=== PATIENT | male | born 1995 ===

== ENCOUNTER 2021-08-12 11:47 | Inpatient (IN) | payer BC ==
[2021-08-12] MEDS ORDERED: MAG HYDROX/AL HYDROX/SIMETH 30 ML CUP PO PRN (18:37)
[2021-08-12] MEDS ORDERED: MAGNESIUM HYDROXIDE 2,400 MG/10 ML CUP PO PRN (18:37)
[2021-08-12] MEDS ORDERED: LORazepam 1 MG TAB PO PRN (18:37)
[2021-08-12] MEDS ORDERED: LORazepam 2 MG/ML INJ IM PRN (18:41)
[2021-08-12] MEDS ORDERED: chlorproMAZINE 25 MG/ML 2 ML AMP IM PRN (18:41)
[2021-08-13] MEDS: NICOTINE 14MG/24HR PATCH TRANSDERM SCH (07:34)
[2021-08-13 09:46] LABS: Appearance,Urine Clear (Clear); Bilirubin,Urine Negative (Negative); Blood,Urine Negative (Negative); Color,Urine Yellow; Glucose,Urine (UA) Negative (Negative); Ketones,Urine Negative (Negative); Leukocyte Esterase,Urine Negative (Negative); Nitrite,Urine Negative (Negative); Protein,Urine Negative (Negative); Specific Gravity,Urine 1.018 (1.001-1.035); Urobilinogen,Urine <2.0 mg/dL (<2.0)
[2021-08-13] MEDS ORDERED: PALIPERIDONE 3 MG TAB.ER.24 PO STA (10:03)
[2021-08-13] MEDS ORDERED: DIVALPROEX 500 MG TABLET.DR PO STA (10:04)
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
[2021-08-13] MEDS: chlorproMAZINE 25 MG TAB PO PRN ×2 (17:13→21:58)
[2021-08-13] MEDS: DIVALPROEX 500 MG TABLET.DR PO SCH (19:35)
[2021-08-13 19:44] LABS: Urine Alcohol Negative (Negative); Urine Barbiturate Negative (Negative); Urine Cocaine Negative (Negative); Urine Methadone Negative (Negative); Urine Opiates Negative (Negative); Urine Phencyclidine Negative (Negative)
--- NOTE | 2021-08-14 02:17 | P.PN ---
Progress Note - Text Progress Note Date: 08/13/21 patient psychotic and could not be evaluated at this time
[2021-08-14] MEDS: ACETAMINOPHEN TAB 325 MG TAB PO PRN (05:03)
[2021-08-14] MEDS ORDERED: chlorproMAZINE 25 MG TAB PO PRN (09:32)
[2021-08-14] MEDS ORDERED: chlorproMAZINE 25 MG/ML 2 ML AMP IM PRN (09:32)
[2021-08-14] MEDS ORDERED: LORazepam 2 MG/ML INJ IM PRN (09:32)
[2021-08-14] MEDS: NICOTINE 14MG/24HR PATCH TRANSDERM SCH ×2 (10:38→14:33)
[2021-08-14] MEDS: PALIPERIDONE 6 MG TAB.ER.24 PO SCH ×2 (10:39→14:33)
[2021-08-14] MEDS: DIVALPROEX 500 MG TABLET.DR PO SCH (10:42)
--- NOTE | 2021-08-14 11:41 | P.PN ---
Progress Note - Text Progress Note Date: 08/14/21 Interval History: Patient was seen resting in bed after receiving Ativan and Thorazine for an episode of agitation. As per chart review, the patient came up to the desk at approximately 5 AM and was asking to get his cell phone. He became very agitated and began threatening staff when he was informed that the phones would be off until 7 AM and cell phones were not allowed on the unit. He started threatening staff and stated that he could repeat this place apart. He took off his glasses off his face and broke them in half and threw them on the floor. He also punched a glass on the window with his right hand very loudly. Security was called and he was given Thorazine and Ativan. Currently the patient is sleeping in bed. At this time, it appears to be more therapeutic for manic patient to sleep. He appears to be in no acute distress and vital signs are normal. Mental Status Exam: General Appearance: Patient appears to be stated age is somnolent, and no acute distress. Behavior: Lying down in bed and is currently sleeping. Speech: Patient's speech could not be assessed at this time. Mood/Affect: Cannot be assessed at this time. Suicidality/Homicidality: Cannot be assessed at this time. Perceptions: Cannot be assessed at this time. Though content/process: Cannot be assessed at this time. Memory and concentration: Cannot be assessed at this time. Judgment and insight: Cannot be assessed at this time. Vital Signs Temp 95.8 F L 08/14/21 05:08 Pulse 86 08/14/21 05:08 Resp 18 08/14/21 05:08 BP 133/79 08/14/21 05:08 Pulse Ox 97 08/13/21 03:52 FiO2 Intake & Output 08/13/21 08/14/21 08/14/21 18:59 06:59 18:59 Weight 131.542 kg Laboratory Results - Last 24 Hours 08/13/21 09:30 Urine Opiates Screen Negative Urine Methadone Screen Negative Ur Propoxyphene Screen Negative Urine Barbiturates Negative Ur Phencyclidine Scrn Negative Ur Amphetamine Screen Negative U Benzodiazepines Scrn Negative Urine Cocaine Screen Negative U Cannabinoids Screen Positive A Urine Alcohol Negative Assessment Acute psychosis Rule out bipolar 1 disorder, manic episode, with psychotic features Rule out schizoaffective disorder, bipolar type Cannabis use disorder Plan: -Patient continues to meet criteria for inpatient psychiatric admission for symptom stabilization and safety. The patient has been petitioned and certified and paperwork has been sent for court. -Medications: Increase Invega to 6 mg by mouth daily for mood stabilization/psychosis Increase Depakote to 750 mg by mouth twice a day stabilization -When necessary Ativan and Thorazine for agitation/aggression. -NRT - nicotine patch -SW on board for discharge planning. Encouraged the patient to participate in milieu.
[2021-08-14] MEDS: chlorproMAZINE 25 MG TAB PO PRN (14:34)
[2021-08-14] MEDS: DIVALPROEX ER 250 MG TAB.ER.24H PO SCH (20:06)
[2021-08-14] MEDS: LORazepam 1 MG TAB PO PRN (20:07)
[2021-08-14] MEDS ORDERED: diphenhydrAMINE 50 MG/ML 1 ML VIAL IM STA (21:36)
[2021-08-14] MEDS: chlorproMAZINE 25 MG/ML 2 ML AMP IM PRN (21:37)
[2021-08-15] MEDS: LORazepam 1 MG TAB PO PRN ×3 (02:10→22:14)
[2021-08-15] MEDS: chlorproMAZINE 25 MG TAB PO PRN ×2 (02:10→10:11)
[2021-08-15] MEDS: DIVALPROEX ER 250 MG TAB.ER.24H PO SCH ×2 (08:56→20:18)
[2021-08-15] MEDS: NICOTINE 14MG/24HR PATCH TRANSDERM SCH (08:56)
[2021-08-15] MEDS: PALIPERIDONE 6 MG TAB.ER.24 PO SCH (08:56)
[2021-08-15 16:17] LABS: Basophils # (A) 0.1 k/uL (0-0.2); Basophils % (A) 1 %; Eosinophils # (A) 0.2 k/uL (0-0.7); Eosinophils % (A) 1 %; HCT 45.1 % (39.0-53.0); HGB 15.1 gm/dL (13.0-17.5); Lymphocytes # (A) 1.8 k/uL (1.0-4.8); Lymphocytes % (A) 13 %; MCH 30.2 pg (25.0-35.0); MCHC 33.5 g/dL (31.0-37.0); MCV 90.1 fL (80.0-100.0); Mean Platelet Volume 6.7; Monocytes # (A) 0.6 k/uL (0-1.0); Monocytes % (A) 5 %; Neutrophils # (A) 10.9 k/uL (1.3-7.7); Neutrophils % (A) 79 %; Platelet Count 401 k/uL (150-450); RDW 12.5 % (11.5-15.5); WBC 13.8 k/uL (3.8-10.6)
[2021-08-15 16:25] LABS: African American GFR (CKD) >90 (>60 ml/min/1.73 sqM); Anion Gap 10 mmol/L; Blood Urea Nitrogen 16 mg/dL (9-20); Calcium 9.3 mg/dL (8.4-10.2); Carbon Dioxide 30 mmol/L (22-30); Chloride 99 mmol/L (98-107); Glucose 109 mg/dL (74-99); Non-African American GFR(CKD) >90 (>60 ml/min/1.73 sqM); Potassium 4.4 mmol/L (3.5-5.1); Sodium 139 mmol/L (137-145)
[2021-08-15] MEDS ORDERED: ONDANSETRON 4 MG TAB PO PRN (16:41)
--- NOTE | 2021-08-15 18:32 | P.PN ---
Progress Note - Text Progress Note Date: 08/15/21 Interval History: Patient was seen wandering the hallways and was agreeable to meeting with this psychiatrist with nurse present. On assessment this afternoon at around 3pm, he presents as grossly psychotic, appears easily confused and concrete in his thought process with some loose associations. He appears to be attending to internal stimuli. He is fixated on not having his cellphone and wants to call his family, but appears confused about using the patient phone and wants us to dial the number for him. As we are helping dial the phone numbers, he complains of feeling lightheaded, appears mildly diaphoretic and complains of nausea. He was assisted to sit down and was given fluids/crackers, and reportedly vomited x 1. His vitals were stable except for heart rate of 102-108, and he is afebrile. Last night he required Thorazine 50 mg IM x 1 for agitation, and this morning required another Thorazine 50 mg po x 1 plus Ativan 2 mg po x 1 for agitation/anxiety. Mental Status Exam: General Appearance: Patient appears to be stated age, is mildly diaphoretic and complains of feeling lightheaded and nauseous. Orientation: He is alert, and oriented to person, place. Could not fully assess time due to symptoms. Behavior: Walking around the unit, is currently calm but appears easily confused. Speech: Speech is mumbled and difficulty to understand at times. Mood/Affect: Mood is "ok", affect is blunted. Suicidality/Homicidality: He denies suicidal or homicidal ideations. Perceptions: He appears to be attending to internal stimuli, however he denies AVH. Though content: Focused on using the phone but is confused on how to dial the number Thought process: [place] Memory and concentration: Impaired Judgment and insight: Poor Vital Signs - 24 hr 08/15/21 08/15/21 02:00 15:36 Temperature 97.6 F 97.1 F L Pulse Rate [ 108 H 102 H Pulse Oximetery ] Respiratory 18 16 Rate Blood Pressure 127/77 [Left Arm] Blood Pressure 129/77 [Right Arm Sitting] Laboratory Tests Range/Units 08/13/21 08/13/21 08/15/21 09:30 09:30 15:55 WBC (3.8-10.6) k/uL 13.8 H RBC (4.30-5.90) m/uL 5.00 Hgb (13.0-17.5) gm/dL 15.1 Hct (39.0-53.0) % 45.1 MCV (80.0-100.0) fL 90.1 MCH (25.0-35.0) pg 30.2 MCHC (31.0-37.0) g/dL 33.5 RDW (11.5-15.5) % 12.5 Plt Count (150-450) k/uL 401 MPV 6.7 Neutrophils % % 79 Lymphocytes % % 13 Monocytes % % 5 Eosinophils % % 1 Basophils % % 1 Neutrophils # (1.3-7.7) k/uL 10.9 H Lymphocytes # (1.0-4.8) k/uL 1.8 Monocytes # (0-1.0) k/uL 0.6 Eosinophils # (0-0.7) k/uL 0.2 Basophils # (0-0.2) k/uL 0.1 Sodium (137-145) mmol/L Potassium (3.5-5.1) mmol/L Chloride (98-107) mmol/L Carbon Dioxide (22-30) mmol/L Anion Gap mmol/L BUN (9-20) mg/dL Creatinine (0.66-1.25) mg/dL Est GFR (CKD-EPI)AfAm (>60 ml/min/1.73 sqM) Est GFR (CKD-EPI)NonAf (>60 ml/min/1.73 sqM) Glucose (74-99) mg/dL Calcium (8.4-10.2) mg/dL Ammonia (<30) umol/L TSH (0.465-4.680) mIU/L Urine Color Yellow Urine Appearance (Clear) Clear Urine pH (5.0-8.0) 6.0 Ur Specific [place] (1.001-1.035) 1.018 Urine Protein (Negative) Negative Urine Glucose (UA) (Negative) Negative Urine Ketones (Negative) Negative Urine Blood (Negative) Negative Urine Nitrite (Negative) Negative Urine Bilirubin (Negative) Negative Urine Urobilinogen (<2.0) mg/dL <2.0 Ur Leukocyte Esterase (Negative) Negative Urine Opiates Screen (Negative) Negative Urine Methadone Screen (Negative) Negative Ur Propoxyphene Screen (Negative) Negative Urine Barbiturates (Negative) Negative Ur Phencyclidine Scrn (Negative) Negative Ur Amphetamine Screen (Negative) Negative U Benzodiazepines Scrn (Negative) Negative Urine Cocaine Screen (Negative) Negative U Cannabinoids Screen (Negative) Positive A Urine Alcohol (Negative) Negative Range/Units 08/15/21 08/15/21 15:55 15:55 WBC (3.8-10.6) k/uL RBC (4.30-5.90) m/uL Hgb (13.0-17.5) gm/dL Hct (39.0-53.0) % MCV (80.0-100.0) fL MCH (25.0-35.0) pg MCHC (31.0-37.0) g/dL RDW (11.5-15.5) % Plt Count (150-450) k/uL MPV Neutrophils % % Lymphocytes % % Monocytes % % Eosinophils % % Basophils % % Neutrophils # (1.3-7.7) k/uL Lymphocytes # (1.0-4.8) k/uL Monocytes # (0-1.0) k/uL Eosinophils # (0-0.7) k/uL Basophils # (0-0.2) k/uL Sodium (137-145) mmol/L 139 Potassium (3.5-5.1) mmol/L 4.4 Chloride (98-107) mmol/L 99 Carbon Dioxide (22-30) mmol/L 30 Anion Gap mmol/L 10 BUN (9-20) mg/dL 16 Creatinine (0.66-1.25) mg/dL 1.02 Est GFR (CKD-EPI)AfAm (>60 ml/min/1.73 sqM) >90 Est GFR (CKD-EPI)NonAf (>60 ml/min/1.73 sqM) >90 Glucose (74-99) mg/dL 109 H Calcium (8.4-10.2) mg/dL 9.3 Ammonia (<30) umol/L <9 TSH (0.465-4.680) mIU/L 1.040 Urine Color Urine Appearance (Clear) Urine pH (5.0-8.0) Ur Specific [place] (1.001-1.035) Urine Protein (Negative) Urine Glucose (UA) (Negative) Urine Ketones (Negative) Urine Blood (Negative) Urine Nitrite (Negative) Urine Bilirubin (Negative) Urine Urobilinogen (<2.0) mg/dL Ur Leukocyte Esterase (Negative) Urine Opiates Screen (Negative) Urine Methadone Screen (Negative) Ur Propoxyphene Screen (Negative) Urine Barbiturates (Negative) Ur Phencyclidine Scrn (Negative) Ur Amphetamine Screen (Negative) U Benzodiazepines Scrn (Negative) Urine Cocaine Screen (Negative) U Cannabinoids Screen (Negative) Urine Alcohol (Negative) Assessment Bipolar 1 disorder, current episode manic with psychotic features Rule out schizoaffective disorder, bipolar type Cannabis use disorder Plan: -Patient continues to meet criteria for inpatient psychiatric admission for symp gurmeet stabilization and safety. The patient has been petitioned and certified and paperwork has been sent for court. -Medications: Continue Invega 6 mg by mouth daily for mood stabilization/psychosis. Continue Depakote to 750 mg by mouth twice a day stabilization. Medical doctor was contacted regarding patient's nausea/vomiting and Zofran was ordered. I have reviewed his UA and Urine toxicology. I have ordered labs additional labs today including CBC with diff, CMP, TSH and ammonia level. Ammonia, TSH and CMP are unremarkable. CBC shows elevated WBC and neutrophils. I discussed these labs with the nurse and we have also ordered a COVID test. Medical doctor to follow-up with patient tomorrow. -When necessary Thorazine for agitation/aggression. I have discontinue the PRN Ativan since he reported feeling lightheaded today. -NRT - nicotine patch -SW on board for discharge planning. Encouraged the patient to participate in milieu.
[2021-08-15] MEDS ORDERED: LORazepam 2 MG/ML INJ IM PRN (21:57)
[2021-08-15] MEDS: ACETAMINOPHEN TAB 325 MG TAB PO PRN (22:14)
[2021-08-15 23:17] LABS: Chol/HDL Ratio 2.88 Ratio; LDL Cholesterol,Calculated 69.4 mg/dL (0.0-131.0); VLDL Calculation 14.24 mg/dL (5.00-40.00)
--- NOTE | 2021-08-16 01:22 | P.PN ---
Progress Note - Text Progress Note Date: 08/16/21 Notified of the consult by the mental health unit RN. Attempted to see the patient, but was advised that the patient is sleeping and not be woken up as he is aggressive and psychotic. Will attempt to see the patient tomorrow.
[2021-08-16] MEDS: LORazepam 1 MG TAB PO PRN (04:17)
[2021-08-16] MEDS: chlorproMAZINE 25 MG TAB PO PRN ×2 (04:17→23:55)
[2021-08-16] MEDS: PALIPERIDONE 6 MG TAB.ER.24 PO SCH ×2 (08:58→20:30)
[2021-08-16] MEDS: DIVALPROEX ER 250 MG TAB.ER.24H PO SCH ×2 (08:58→20:30)
[2021-08-16] MEDS: NICOTINE 14MG/24HR PATCH TRANSDERM SCH (08:59)
--- NOTE | 2021-08-16 17:48 | P.PN ---
Progress Note - Text Progress Note Date: 08/16/21 Interval History: Patient was seen wandering the hallways, remains intrusive and knocks on the office door multiple times. His thoughts are becoming more coherent, but still makes nonsensical and disorganized statements. He denies auditory or visual hallucinations. He denies suicidal or homicidal ideation, plan or intent. He denies feeling lightheaded today, denies nausea or vomiting. Medical doctor attempted to see him but he was asleep. He reports his mood is "down", no energy, "honestly I'd rather smoke weed." He appears anxious, has not been able to reach his daughter, has not been able to communicate with this family. He has nonworking numbers for his family so we looked up the correct numbers online with his permission. We called the first number and reached his grandmother who was happy to hear from him and gave him the numbers for his mother and father. 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 He does not think he has a mental illness and does not think he needs to take medications. He states he didn't take medications before in his life and he was "fine". His insight and judgment remain poor. He begins to cry and state he feels "depressed" and all he cares about is his daughter. Mental Status Exam: General Appearance: Patient appears to be stated age, hygiene is fair. Orientation: He is alert, and oriented to person, place, time. Behavior: Walking around the unit, is intrusive and impulsive. Speech: Speech is fluent and non-pressured. Mood/Affect: Mood is "down", affect is congruent, tearful at times. Suicidality/Homicidality: He denies suicidal or homicidal ideations. Perceptions: He appears to be attending to internal stimuli, however he denies AVH. Though content: Focused on his daughter. Thought process: Thought blocking, loose associations, disorganized. Memory and concentration: Impaired Judgment and insight: Poor Assessment Bipolar 1 disorder, current episode manic with psychotic features Rule out schizoaffective disorder, bipolar type Cannabis use disorder Plan: -Patient continues to meet criteria for inpatient psychiatric admission for symptom stabilization and safety. The patient has been petitioned and certified and paperwork has been sent for court. -Medications: Increase Invega to 6 mg BID for mood stabilization/psychosis. Continue Depakote to 750 mg by mouth twice a day stabilization. Depakote level ordered for Wednesday morning. -When necessary Thorazine for agitation/aggression. -NRT - nicotine patch -SW on board for discharge planning. Encouraged the patient to participate in milieu.
--- NOTE | 2021-08-17 03:07 | P.CONS ---
History of Present Illness - Reason for Consult Consult date: 08/16/21 - History of Present Illness The patient is a 25-year-old male with no known PMH who was transferred from [facility] where he had been admitted for manic episode. The patient reports that he was recently started on Zoloft which he believes made him developed OCD. He appeared to have grandiose delusions and mentioned that he is the "all knowing". He reports using marijuana and vaping but denied illicit substance or alcohol use. Denied physical complaints at the time of interview. Denied experiencing chest discomfort, shortness of cough, chills, cough, nausea, vomiting, abdominal pain, diarrhea. Review of systems: Pertinent positives and negatives as discussed in HPI, a complete review of systems was performed and all other systems are negative. Physical examination: General: non toxic, no distress, appears at stated age, normal weight Derm: no unusual rashes/lesions no unusual ecchymoses, warm, dry Head: atraumatic, normocephalic, symmetric Eyes: EOMI, no lid lag, anicteric sclera, pupils equal round reactive to light ENT: Nose and ears atraumatic, no thrush, no pharyngeal erythema Neck: No thyromegaly, no cervical lymphadenopathy, trachea midline, supple Mouth: no lip lesion, mucus membranes moist Cardiovascular: S1S2 reg, no murmur, positive posterior tibial pulse bilateral, no edema, capillary refill less than 2 seconds Lungs: CTA bilateral, no rhonchi, no rales , no accessory muscle use Abdominal: soft, nontender to palpation, no guarding, no appreciable organomegaly, normal bowel sounds Ext: no gross muscle atrophy, muscle strength 5 out of 5 in all 4 extremities grossly, no contractures, Neuro: CN II-XI grossly intact, light touch intact all 4 extremities, finger to nose within normal limits, Psych: Alert, oriented, paranoid Assessment/plan Marijuana and vaaping abuse -Advised on the importance of cessation Psychosis -As per psychiatry Thank you for allowing us to participate in the care of this patient. We will follow peripherally. Do not hesitate to contact us with questions. Someone can be reached from the [facility] hospitalist group at all hours of the day at [phone]. Past Medical History Past Medical History: GERD/Reflux Additional Past Medical History / Comment(s): fracture to nose History of Any Multi-Drug Resistant Organisms: None Reported Past Surgical History: No Surgical Hx Reported Past Anesthesia/Blood Transfusion Reactions: No Reported Reaction Past Psychological History: Bipolar, Depression Smoking Status: Vaper Past Alcohol Use History: Occasional Additional Past Alcohol Use History / Comment(s): 1-2 drinks/week Past Drug Use History: Marijuana Additional Drug Use History / Comment(s): 1 oz. marijuana daily-none in last few weeks, past mushroom use. - Past Family History Mother History Unknown: Yes Family Medical History: Liver Disease Medications and Allergies Home Medications Medication Instructions Recorded Confirmed Type No Known Home Medications 08/12/21 08/12/21 History Allergies Allergy/AdvReac Type Severity Reaction Status Date / Time No Known Allergies Allergy Verified 08/12/21 23:59 Physical Exam Vitals: Vital Signs Pulse BP 08/16/21 19:01 107 H 130/71 Results CBC & Chem 7: 08/15/21 15:55 08/15/21 15:55
[2021-08-17] MEDS: PALIPERIDONE 6 MG TAB.ER.24 PO SCH ×3 (08:36→21:02)
[2021-08-17] MEDS: DIVALPROEX ER 250 MG TAB.ER.24H PO SCH ×3 (08:36→21:02)
[2021-08-17] MEDS: NICOTINE 14MG/24HR PATCH TRANSDERM SCH (08:36)
[2021-08-17] MEDS: chlorproMAZINE 25 MG/ML 2 ML AMP IM PRN (09:28)
[2021-08-17] MEDS: ACETAMINOPHEN TAB 325 MG TAB PO PRN (09:41)
[2021-08-17] MEDS ORDERED: HALOPERIDOL LACTATE 5 MG/ML 1 ML VIAL IM PRN (15:07)
--- NOTE | 2021-08-17 15:10 | P.PN ---
Progress Note - Text Progress Note Date: 08/17/21 Interval History: Patient was seen wandering the hallways, remains intrusive with odd affect. This morning he received his morning medications, and about an hour later he received Thorazine 50 mg IM x 1 and Ativan 1 mg IM x 1 for agitation. By noon he was complaining of nausea, and around 2:45 pm he came into the psychiatrist's office, reported not feeling well and that he had just vomited, reported vomiting 3-4 times so today (some of it witnessed). He had a similar episode of emesis 2 days ago after getting Thorazine and Ativan PRN, so I will discontinue these today. He is otherwise a poor historian. He denies suicidal or homicidal ideation, plan or intent. 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 He appears to be attending to internal stimuli. Thought process is significant for loose associations. He talks about missing his family. He mumbles incoherently, and lays down on the couch in the psychiatrist's office and falls asleep. Mental Status Exam: General Appearance: Patient appears to be stated age, hygiene is fair, appears nausea, just vomited. Orientation: He is alert, and oriented to person, place. Not able to assess time due to his nausea/vomiting. Behavior: Walking around the unit, remains intrusive and impulsive. Speech: Speech is mumbled and non-pressured. Mood/Affect: Mood is depressed, affect is congruent. Suicidality/Homicidality: He denies suicidal or homicidal ideations. Perceptions: He appears to be attending to internal stimuli, however he denies AVH. Though content: Focused on his family. Mumbles other incoherent things. Thought process: Loose associations. Memory and concentration: Impaired Judgment and insight: Poor Assessment Bipolar 1 disorder, current episode manic with psychotic features Rule out schizoaffective disorder, bipolar type Cannabis use disorder Nausea/vomiting Plan: -Patient continues to meet criteria for inpatient psychiatric admission for symptom stabilization and safety. The patient has been petitioned and certified and paperwork has been sent for court. Labs: Ordered STAT CBC with diff, CMP, lipase, amylase, ammonia, to assess nausea/vomiting. -Medications: Continue Invega 6 mg BID for mood stabilization/psychosis. Discontinue Thorazine and Ativan PRN for agitation due to nausea/vomiting on 2 days following these medications. Will start Haldol 5 mg PO/IM Q6H PRN for agitation. Continue Depakote 750 mg by mouth twice a day for mood stabilization. Depakote level ordered for Wednesday morning. Will adjust doses based on level. -NRT - nicotine patch -SW on board for discharge planning. Encouraged the patient to participate in milieu.
[2021-08-17 15:25] LABS: Basophils % (A) 0 %; Eosinophils # (A) 0.1 k/uL (0-0.7); Eosinophils % (A) 1 %; HCT 40.6 % (39.0-53.0); HGB 13.6 gm/dL (13.0-17.5); Lymphocytes # (A) 1.4 k/uL (1.0-4.8); Lymphocytes % (A) 14 %; MCH 30.7 pg (25.0-35.0); MCHC 33.5 g/dL (31.0-37.0); MCV 91.8 fL (80.0-100.0); Mean Platelet Volume 6.8; Monocytes # (A) 0.5 k/uL (0-1.0); Monocytes % (A) 5 %; Neutrophils # (A) 7.6 k/uL (1.3-7.7); Neutrophils % (A) 78 %; Platelet Count 348 k/uL (150-450); RBC 4.43 m/uL (4.30-5.90); RDW 12.9 % (11.5-15.5); WBC 9.7 k/uL (3.8-10.6)
[2021-08-17 15:45] LABS: ALT 23 U/L (4-49); AST 43 U/L (17-59); African American GFR (CKD) >90 (>60 ml/min/1.73 sqM); Albumin 4.3 g/dL (3.5-5.0); Alkaline Phosphatase 71 U/L (38-126); Amylase 56 U/L (30-110); Anion Gap 6 mmol/L; Blood Urea Nitrogen 15 mg/dL (9-20); Carbon Dioxide 31 mmol/L (22-30); Chloride 101 mmol/L (98-107); Glucose 112 mg/dL (74-99); Lipase 41 U/L (23-300); Non-African American GFR(CKD) >90 (>60 ml/min/1.73 sqM); Potassium 4.3 mmol/L (3.5-5.1); Sodium 138 mmol/L (137-145); Total Bilirubin 0.6 mg/dL (0.2-1.3); Total Protein 6.9 g/dL (6.3-8.2)
[2021-08-17] MEDS: haloperidoL 5 MG TAB PO PRN (21:09)
[2021-08-18] MEDS: NICOTINE 14MG/24HR PATCH TRANSDERM SCH (10:00)
[2021-08-18] MEDS: PALIPERIDONE 6 MG TAB.ER.24 PO SCH ×2 (10:00→21:14)
[2021-08-18] MEDS: DIVALPROEX ER 250 MG TAB.ER.24H PO SCH ×2 (10:00→21:14)
[2021-08-18] MEDS: haloperidoL 5 MG TAB PO PRN (11:02)
--- NOTE | 2021-08-18 16:16 | P.PN ---
Progress Note - Text Progress Note Date: 08/18/21 Interval History: I attempted to assess patient twice today and both times he was found asleep in bed. He has received Haldol 5 mg po x 1 at 11:02 AM today for agitation. On my second attempt, he awakens easily to name, but is passively engaged in assessment. He denies suicidal or homicidal ideation, plan or intent and then falls asleep. He continues to be intrusive on the unit, requires redirection, and talk about being transferred so he can volunteer. No more nausea/vomiting reported. Labs reviewed and amylase/lipase are unremarkable. Mental Status Exam: General Appearance: Patient appears to be stated age, hygiene is fair, dressed in casual attire. Orientation: He is sleepy, oriented to person and place. Behavior: Laying in bed asleep, is passively engaged in assessment on awakening, and returns to sleep. Speech: Speech is mumbled and non-pressured. Mood/Affect: Mood is labile, affect is congruent. Suicidality/Homicidality: He denies suicidal or homicidal ideations, plan or intent. Perceptions: Unable to fully assess due to sedation. Though content: Earlier today he was talking about being transferred so he can volunteer. Thought process: Loose associations. Memory and concentration: Impaired Judgment and insight: Poor Assessment Bipolar 1 disorder, current episode manic with psychotic features Rule out schizoaffective disorder, bipolar type Cannabis use disorder Nausea/vomiting - resolved Plan: -Patient continues to meet criteria for inpatient psychiatric admission for symptom stabilization and safety. The patient has been petitioned and certified and paperwork has been sent for court. Labs: Repeat Depakote level ordered for Wednesday08/19/21. -Medications: Continue Invega 6 mg BID for mood stabilization/psychosis. Continue Depakote 750 mg BID for mood stabilization, and can adjust dose based on Depakote level. Continue Haldol 5 mg PO/IM Q6H PRN for agitation. -NRT - nicotine patch -SW on board for discharge planning. Encouraged the patient to participate in milieu.
[2021-08-19] MEDS: NICOTINE 14MG/24HR PATCH TRANSDERM SCH (09:58)
[2021-08-19] MEDS: DIVALPROEX ER 250 MG TAB.ER.24H PO SCH ×2 (09:58→19:56)
[2021-08-19] MEDS: PALIPERIDONE 6 MG TAB.ER.24 PO SCH ×2 (09:58→19:56)
--- NOTE | 2021-08-19 12:07 | P.PN ---
Progress Note - Text Progress Note Date: 08/19/21 Interval History: Patient was seen wandering the hallways and was directable and agreeable to speak with clinical writer in the office. The patient reports that he is feeling better today. He continues to make occasional nonsensical statements and endorse bizarre tangential thought process. He wrote down the word [employer] on his folder and then began to ask "why is that there?" The patient however has been adherent with his medications and is not reporting any significant side effects at this time. He does report a strong desire for discharge. He is not reporting any suicidal or homicidal ideation, intention, and/or plan. He is not reporting any issues regarding his sleep or his appetite. Collateral information was obtained by the patient's mother Vivien Shanks ([phone]) who reports that the patient is significantly better than he was last week. The patient's father is reportedly going to be present for visitation tomorrow. The patient is agreeable to a long-acting injectable of Invega Sustenna. Mental Status Exam: General Appearance: Patient appears to be stated age is alert, directable, and cooperative. Fair hygiene and grooming. Behavior: Patient is calmly seated without any agitated behavior. Occasional restlessness. Speech: Patient's speech is fluent and nonpressured. Mood/Affect: Mood is improving mildly, affect is within appropriate range and less expansive. Suicidality/Homicidality: Patient is not endorsing any suicidal or homicidal ideation, intention, and/or plan. Perceptions: The patient is not reporting any auditory or visual hallucinations. Though content/process: The patient continues to endorse some bizarre delusional thought content and occasional flight of ideas however's much more linear and logical compared to last week. Memory and concentration: AOX3, grossly intact for the purposes of this session Judgment and insight: Improving mildly Vital Signs Temp 97.5 F L 08/19/21 06:25 Pulse 113 H 08/19/21 06:25 Resp 16 08/19/21 06:25 BP 102/74 08/19/21 06:25 Pulse Ox 97 08/13/21 03:52 FiO2 Laboratory Results WBC 9.7 k/uL (3.8-10.6) 08/17/21 15:16 RBC 4.43 m/uL (4.30-5.90) 08/17/21 15:16 Hgb 13.6 gm/dL (13.0-17.5) 08/17/21 15:16 Hct 40.6 % (39.0-53.0) 08/17/21 15:16 MCV 91.8 fL (80.0-100.0) 08/17/21 15:16 MCH 30.7 pg (25.0-35.0) 08/17/21 15:16 MCHC 33.5 g/dL (31.0-37.0) 08/17/21 15:16 RDW 12.9 % (11.5-15.5) 08/17/21 15:16 Plt Count 348 k/uL (150-450) 08/17/21 15:16 MPV 6.8 08/17/21 15:16 Neutrophils % 78 % 08/17/21 15:16 Lymphocytes % 14 % 08/17/21 15:16 Monocytes % 5 % 08/17/21 15:16 Eosinophils % 1 % 08/17/21 15:16 Basophils % 0 % 08/17/21 15:16 Neutrophils # 7.6 k/uL (1.3-7.7) 08/17/21 15:16 Lymphocytes # 1.4 k/uL (1.0-4.8) 08/17/21 15:16 Monocytes # 0.5 k/uL (0-1.0) 08/17/21 15:16 Eosinophils # 0.1 k/uL (0-0.7) 08/17/21 15:16 Basophils # 0.0 k/uL (0-0.2) 08/17/21 15:16 Sodium 138 mmol/L (137-145) 08/17/21 15:16 Potassium 4.3 mmol/L (3.5-5.1) 08/17/21 15:16 Chloride 101 mmol/L (98-107) 08/17/21 15:16 Carbon Dioxide 31 mmol/L (22-30) H 08/17/21 15:16 Anion Gap 6 mmol/L 08/17/21 15:16 BUN 15 mg/dL (9-20) 08/17/21 15:16 Creatinine 0.90 mg/dL (0.66-1.25) 08/17/21 15:16 Est GFR (CKD-EPI)AfAm >90 (>60 ml/min/1.73 sqM) 08/17/21 15:16 Est GFR (CKD-EPI)NonAf >90 (>60 ml/min/1.73 sqM) 08/17/21 15:16 Glucose 112 mg/dL (74-99) H 08/17/21 15:[address] Glu mg/dL 117 08/15/21 15:55 Hemoglobin A1c 5.7 % (0.0-6.0) 08/15/21 15:55 Calcium 9.0 mg/dL (8.4-10.2) 08/17/21 15:16 Total Bilirubin 0.6 mg/dL (0.2-1.3) 08/17/21 15:16 AST 43 U/L (17-59) 08/17/21 15:16 ALT 23 U/L (4-49) 08/17/21 15:16 Alkaline Phosphatase 71 U/L (38-126) 08/17/21 15:16 Ammonia <9 umol/L (<30) 08/17/21 15:16 Total Protein 6.9 g/dL (6.3-8.2) 08/17/21 15:16 Albumin 4.3 g/dL (3.5-5.0) 08/17/21 15:16 Triglycerides 71.20 mg/dL (0.00-149.00) 08/15/21 15:55 Cholesterol 128.00 mg/dL (0.00-200.00) 08/15/21 15:55 LDL Cholesterol, Calc 69.4 mg/dL (0.0-131.0) 08/15/21 15:55 VLDL Cholesterol, Calc 14.24 mg/dL (5.00-40.00) 08/15/21 15:55 HDL Cholesterol 44.40 mg/dL (40.00-60.00) 08/15/21 15:55 Cholesterol/HDL Ratio 2.88 Ratio 08/15/21 15:55 Amylase 56 U/L (30-110) 08/17/21 15:16 Lipase 41 U/L (23-300) 08/17/21 15:16 TSH 1.040 mIU/L (0.465-4.680) 08/15/21 15:55 Urine Color Yellow 08/13/21 09:30 Urine Appearance Clear (Clear) 08/13/21 09:30 Urine pH 6.0 (5.0-8.0) 08/13/21 09:30 Ur Specific Ballinger 1.018 (1.001-1.035) 08/13/21 09:30 Urine Protein Negative (Negative) 08/13/21 09:30 Urine Glucose (UA) Negative (Negative) 08/13/21 09:30 Urine Ketones Negative (Negative) 08/13/21 09:30 Urine Blood Negative (Negative) 08/13/21 09:30 Urine Nitrite Negative (Negative) 08/13/21 09:30 Urine Bilirubin Negative (Negative) 08/13/21 09:30 Urine Urobilinogen <2.0 mg/dL (<2.0) 08/13/21 09:30 Ur Leukocyte Esterase Negative (Negative) 08/13/21 09:30 Urine Opiates Screen Negative (Negative) 08/13/21 09:30 Urine Methadone Screen Negative (Negative) 08/13/21 09:30 Ur Propoxyphene Screen Negative (Negative) 08/13/21 09:30 Urine Barbiturates Negative (Negative) 08/13/21 09:30 Valproic Acid 76.1 ug/mL 08/18/21 07:18 Ur Phencyclidine Scrn Negative (Negative) 08/13/21 09:30 Ur Amphetamine Screen Negative (Negative) 08/13/21 09:30 U Benzodiazepines Scrn Negative (Negative) 08/13/21 09:30 Urine Cocaine Screen Negative (Negative) 08/13/21 09:30 U Cannabinoids Screen Positive (Negative) A 08/13/21 09:30 Urine Alcohol Negative (Negative) 08/13/21 09:30 Coronavirus (PCR) Not Detected (Not Detectd) 08/15/21 18:53 Allergies Allergy/AdvReac Type Severity Reaction Status Date / Time No Known Allergies Allergy Verified 08/12/21 23:59 Assessment Bipolar 1 disorder, current episode manic with psychotic features Rule out schizoaffective disorder, bipolar type Cannabis use disorder Plan: -Patient continues to meet criteria for inpatient psychiatric admission for symptom stabilization and safety. Patient is scheduled for court on 08/21/2021. -Labs reviewed, within normal limits. Depakote level 76.1. -Medications: Continue Depakote 750 mg by mouth twice a day for mood stabilization Continue Invega 6 mg by mouth twice a day for mood stabilization/psychosis. Plan is to transition patient to Invega Sustenna prior to discharge. -When necessary Ativan and Haldol for agitation/aggression. -NRT - nicotine patch -SW on board for discharge planning. Encouraged the patient to participate in milieu.
[2021-08-20] MEDS: DIVALPROEX ER 250 MG TAB.ER.24H PO SCH ×2 (09:35→21:13)
[2021-08-20] MEDS: PALIPERIDONE 6 MG TAB.ER.24 PO SCH ×2 (09:35→21:13)
[2021-08-20] MEDS: NICOTINE 14MG/24HR PATCH TRANSDERM SCH (09:36)
[2021-08-20] MEDS ORDERED: PALIPERIDONE IM 234 MG/1.5 ML SYG IM STA (09:44)
--- NOTE | 2021-08-20 10:21 | P.PN ---
Progress Note - Text Progress Note Date: 08/20/21 Interval History: Patient was seen wandering the hallways and was directable and agreeable to speak with policy writer typist in the office. The patient is tearful during the interview. He reports that he just misses his family, in particular his parents and his daughter. He also states that he wants to make things right with his child and wishes to her. He is delusional throughout the interview. He is however denying any suicidal or homicidal ideation, intention, and/or plan. He is not reporting any auditory or visual hallucinations. He is denying any paranoia or other delusions. The patient does have to be redirected multiple times as he continues to ask this provider for discharge or staff to use his phone. This is after repeated attempts to educate the patient on what is protocol the unit. Patient is however adherent with his medications and is not endorsing any significant side effects at this time. He is agreeable to transition to [facility]. He asked that this provider speaks on his behalf for court however was educated on the mental health court process. Mental Status Exam: General Appearance: Patient appears to be stated age is alert, directable, and cooperative. Fair hygiene and grooming. Athletic build. Behavior: Patient is calmly seated without any agitated behavior. Speech: Patient's speech is fluent and nonpressured. Mood/Affect: Mood is improving mildly, affect is within appropriate range and less expansive. Suicidality/Homicidality: Patient is not endorsing any suicidal or homicidal ideation, intention, and/or plan. Perceptions: The patient is not reporting any auditory or visual hallucinations. Though content/process: Ruminative. Often repetitive. Memory and concentration: AOX3, grossly intact for the purposes of this session Judgment and insight: Improving mildly Vital Signs Temp 97.5 F L 08/19/21 06:25 Pulse 69 08/19/21 17:44 Resp 16 08/19/21 06:25 BP 131/68 08/19/21 17:44 Pulse Ox 97 08/13/21 03:52 FiO2 Assessment Bipolar 1 disorder, current episode manic with psychotic features Rule out schizoaffective disorder, bipolar type Cannabis use disorder Plan: -Patient continues to meet criteria for inpatient psychiatric admission for symptom stabilization and safety. Patient is scheduled for court on 08/21/2021. -Labs reviewed, within normal limits. Depakote level 76.1. -Medications: Continue Depakote 750 mg by mouth twice a day for mood stabilization We'll administer Invega Sustenna 234 mg IM today. Continue Invega 6 mg by mouth twice a day at this time. -When necessary Ativan and Haldol for agitation/aggression. -NRT - nicotine patch -SW on board for discharge planning. Encouraged the patient to participate in milieu.
[2021-08-20] MEDS: haloperidoL 5 MG TAB PO PRN (16:36)
[2021-08-21 07:07] VITALS: RESP 18
[2021-08-21] MEDS: PALIPERIDONE 6 MG TAB.ER.24 PO SCH (08:04)
[2021-08-21] MEDS: DIVALPROEX ER 250 MG TAB.ER.24H PO SCH ×2 (08:04→16:23)
[2021-08-21] MEDS: NICOTINE 14MG/24HR PATCH TRANSDERM SCH (08:05)
--- NOTE | 2021-08-21 13:21 | P.PN ---
Progress Note - Text Progress Note Date: 08/21/21 Interval History: Patient was seen wandering the hallways and was directable and agreeable to speak with production underwriter in the office. The patient is currently not reporting any suicidal or homicidal ideation, intention, and/or plan. He is not reporting any auditory or visual hallucinations. He is denying any paranoia or other delusions. The patient is primarily focused on discharge. He is tearful as he expresses how much she misses family, especially his child. The patient is looking forward to discharge. He has been in adherent with his medication and is not endorsing any significant side effects. He received Invega Sustenna yesterday and is tolerating it well. Mental Status Exam: General Appearance: Patient appears to be stated age is alert, directable, and cooperative. Fair hygiene and grooming. Athletic build. Behavior: Patient is calmly seated without any agitated behavior. Speech: Patient's speech is fluent and nonpressured. Mood/Affect: Mood is improving mildly, affect is within appropriate range Suicidality/Homicidality: Patient is not endorsing any suicidal or homicidal ideation, intention, and/or plan. Perceptions: The patient is not reporting any auditory or visual hallucinations. Though content/process: Linear and logical in short conversation. Focused on discharge. Memory and concentration: AOX3, grossly intact for the purposes of this session Judgment and insight: Improving mildly Vital Signs Temp 97.9 F 08/21/21 07:07 Pulse 119 H 08/21/21 07:07 Resp 18 08/21/21 07:07 BP 141/70 08/21/21 07:07 Pulse Ox 99 08/21/21 07:07 FiO2 Assessment Bipolar 1 disorder, current episode manic with psychotic features Rule out schizoaffective disorder, bipolar type Cannabis use disorder Plan: -Patient continues to meet criteria for inpatient psychiatric admission for sy mptom stabilization and safety. Patient is court ordered for mental health treatment as of 08/21/2021.. -Labs reviewed, within normal limits. Depakote level 76.1. -Medications: Continue Depakote 750 mg by mouth twice a day for mood stabilization Invega Sustenna 234 mg IM was administered on 08/20/2021. Second loading dose of 156 mg IM is due on 08/27/21. -When necessary Ativan and Haldol for agitation/aggression. -NRT - nicotine patch -SW on board for discharge planning. Encouraged the patient to participate in milieu.
[2021-08-21 16:13] LABS: African American GFR (CKD) >90 (>60 ml/min/1.73 sqM); Albumin 4.3 g/dL (3.5-5.0); Anion Gap 6 mmol/L; Blood Urea Nitrogen 15 mg/dL (9-20); Carbon Dioxide 34 mmol/L (22-30); Chloride 101 mmol/L (98-107); Glucose 81 mg/dL (74-99); Non-African American GFR(CKD) >90 (>60 ml/min/1.73 sqM); Potassium 4.3 mmol/L (3.5-5.1); Sodium 141 mmol/L (137-145); Total Protein 7.1 g/dL (6.3-8.2)
[2021-08-21 16:14] LABS: ALT 17 U/L (4-49); AST 23 U/L (17-59); Alkaline Phosphatase 68 U/L (38-126); Calcium 9.1 mg/dL (8.4-10.2); Total Bilirubin 0.5 mg/dL (0.2-1.3)
[2021-08-21] MEDS: LACTULOSE 20 GM/30 ML CUP PO SCH (20:33)
[2021-08-22 07:13] VITALS: BP 128/58; PULSE 88; TEMP 97.8
[2021-08-22] MEDS: DIVALPROEX ER 250 MG TAB.ER.24H PO SCH ×2 (08:09→11:40)
[2021-08-22] MEDS: LACTULOSE 20 GM/30 ML CUP PO SCH (08:09)
[2021-08-22] MEDS ORDERED: PALIPERIDONE 6 MG TAB.ER.24 PO SCH (11:45)
[2021-08-22 12:44] VITALS: BMI 44.1
--- NOTE | 2021-08-22 19:33 | P.DS ---
Providers Date of admission: 08/12/21 21:32 Expected date of discharge: 08/22/21 Attending physician: Andrew Ptael MD Consults: 08/12/21 18:37 Consult Physician Routine Consulting Provider: Bettina Herrera Consult Reason/Comments: H&P and medical Do you want consulting provider notified?: Yes Primary care physician: Maricruz Traylor DO Hospital Course: Admission HPI: Admission note was completed by Dr. Andrew Patel: H&P Date: 08/13/21 History & Physical: Allergies Allergy/AdvReac Type Severity Reaction Status Date / Time No Known Allergies Allergy Verified 08/12/21 23:59 Vital Signs Temp 97.4 F L 08/13/21 03:52 Pulse 65 08/13/21 03:52 Resp 18 08/13/21 03:52 BP 132/82 08/13/21 03:52 Pulse Ox 97 08/13/21 03:52 FiO2 Intake & Output 08/12/21 08/13/21 08/13/21 18:59 06:59 18:59 Weight 90.7 kg 89.63 kg Laboratory Last Values Urine Color Yellow 08/13/21 09:30 Urine Appearance Clear (Clear) 08/13/21 09:30 Urine pH 6.0 (5.0-8.0) 08/13/21 09:30 Ur Specific [employer] 1.018 (1.001-1.035) 08/13/21 09:30 Urine Protein Negative (Negative) 08/13/21 09:30 Urine Glucose (UA) Negative (Negative) 08/13/21 09:30 Urine Ketones Negative (Negative) 08/13/21 09:30 Urine Blood Negative (Negative) 08/13/21 09:30 Urine Nitrite Negative (Negative) 08/13/21 09:30 Urine Bilirubin Negative (Negative) 08/13/21 09:30 Urine Urobilinogen <2.0 mg/dL (<2.0) 08/13/21 09:30 Ur Leukocyte Esterase Negative (Negative) 08/13/21 09:30 08/13/21 11:41 IDENTIFYING DATA: Patient is a single, currently unemployed, 25-year-old male who presented to the hospital from [facility] for jean paul. HPI: Patient presented to this hospital on 08/12/2021, transferred from [facility] for a manic episode. The patient was reportedly hospitalized at [facility] for 2 weeks and was prescribed multiple psychiatric medications however appeared to have an adverse reaction with the suspicion for neuroleptic malignant syndrome. The patient presented to the [facility] on 07/26/2021. He was also suspected that the patient was previous [place] with Zoloft which may have precipitated his manic episode. The patient was also reportedly in [facility] for domestic violence however it was determined that he was likely not in the record from a mind due to his active jean paul and psychosis. Upon evaluation on the psychiatric unit, the patient displays overtly manic and psychotic behavior. He is unable to maintain any clear history of events leading up to this hospitalization. He displays significant flight of ideas. He expresses that he is in a relationship with "Chetna. She is the greatest conquer of the world." He also states that he is "Nadira, the rachel lety [place]." The patient also reportedly did not sleep last night. He is currently denying any suicidal ideation but reports a history of suicide ideation in the past. He denies any homicidal ideation. He is currently denying any overt auditory or visual hallucinations. He reports that he is agreeable to take medications "if they are experimental." He was informed that these medications are not experimental however he is in agreement to take them regardless. PAST PSYCHIATRIC HISTORY: Patient has a previous psychiatric history of substance abuse. As per chart review, the patient was reportedly trialed on Abilify however developed NMS. He was also on Zoloft. The patient has had at least one psychiatric hospital stabilization prior to this admission. He is currently not open with any outpatient psychiatric care. Patient denies any history of suicide attempts in the past. PMH: No reported past medical history ALLERGIES: NO KNOWN DRUG ALLERGIES CHEMICAL DEPENDENCY HISTORY: Patient admits to heavy marijuana use. Furthermore, the patient does admit to a history of mushroom use and LSD use. FAMILY PSYCHIATRIC/SUBSTANCE USE HISTORY: Unable to determine at this time SOCIAL HISTORY: Patient is single, never , but has a 1-1/2-year-old child. 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 He was most recently incarcerated for domestic violence against the mother of his child. MENTAL STATUS EXAM: General Appearance: Patient appears to be stated age is alert, difficult to direct, and attempts to cooperate. Patient appears to have fair hygiene and grooming. Behavior: Patient is seated but displays elevated psychomotor activity. Speech: Patient's speech is fluent however tangential and difficult to follow. Mood/Affect: Patient reports their mood is "feeling like I am where I belong." Affect is expansive and grandiose. Suicidality/Homicidality: Patient denies any suicidal or homicidal ideation. Perceptions: Patient denies any visual hallucinations and denies any auditory hallucinations Though content/process: Patient is overtly grandiose, delusional, with a significant flight of ideas. Memory and concentration: Currently alert and oriented to person and time only. Concentration appears to be grossly poor. Judgment and insight: poor STRENGTHS/WEAKNESSES: Strength is that the patient has a supportive family. Weakness is that the patient engages in significant substance abuse INTELLECT: average IMPRESSIONS: Acute psychosis Rule out bipolar 1 disorder, manic episode, with psychotic features Rule out schizoaffective disorder, bipolar type PLAN: -Patient is admitted under involuntary status to MHU for stabilization of psychiatric symptoms and safety. A second certification was completed and along with petition will be filed for court. -Medications : Will start patient on Invega 3 mg by mouth daily for acute psychosis/mood stabilization Depakote 500 mg by mouth twice a day for mood stabilization -Ativan and Thorazine PRN for agitation/aggression -Patient was counselled on substance abuse and desired to cut back on use -Patient was informed of the risks, benefits and side effects of the medication and patient verbally consented to taking the medications. -Internal Medicine consult to perform medical evaluation and physical. -NRT - nicotine patch -SW on board for discharge planning. Encourage patient to participate in groups to work on coping skills. 08/13/21 11:41" Hospital course: Upon admission to the unit patient was difficult to redirect, displayed elevated psychomotor activity, was tangential in his thought process and difficult to follow, and displayed overt grandiose and delusional thoughts. He was admitted involuntarily on a petition and certificate and a second certificate was completed and faxed with the courts. Patient was court ordered to mental health treatment on 08/21/21. Patient was intrusive on the unit and required frequent redirection, was agitated on several occasions and required security and PRN medications for agitation. He would develop nausea/vomiting after receiving Thorazine and Ativan PRN, and so this was replaced with Haldol PRN for agitation. As for his scheduled medications, he was started on Depakote 750 mg BID for mood stabilization, and was started on Invega 3 mg po daily for psychosis which was titrated upwards to 12 mg daily and switched to Invega Sust samantha 234 mg IM, given on 08/20/2021. He was restarted on Invega 6 mg po daily to bridge until he receives his booster dose of Invega Sustenna 156 mg IM next week. His Depakote level was therapeutic at 76.1 at this dose on 08/18/2021. His ammonia level was mildly increased at 40 on 08/21/2021 and he was started on lactulose for hyperammonemia. Patient had some issues with noncompliance with the medications earlier in the hospital course, but became more compliant as he improved, and denied any side effects at discharge. Patient spoke of his stressors and engaged in therapy both group and individual. Patient was also seen by medical team for history and physical exam. Throughout the course of the hospitalization patient gradually improved with regards to psychosis, mood, anxiety, sleep and returned back to their baseline level of functioning and became more future oriented with improved insight and judgment. On the day of discharge patient denied any suicidal or homicidal ideations intent or plan, and denied any auditory or visual hallucinations. The patient denied any access to guns or weapons. Patient denied any paranoia and did not endorse any delusions. Patient does have a significant history of cannabis abuse and was counseled on abstaining from all substances including alcohol and marijuana. Patient was also counseled on the medications and need for regular compliance and was encouraged to follow-up with their outpatient appointment for mental health and also for primary care. Prior to discharge a family meeting will be arranged by 7th grade social studies teacher to answer any questions and ensure safety upon discharge. [] Mental status exam: General Appearance: Patient appears to be stated age, is dressed in clean/casual attire. Patient is in no acute distress and has improved hygiene and grooming. Orientation: Alert and oriented to person, place, time and situation. Behavior: Patient is calmly seated without any agitated behavior. Speech: Patient's speech is fluent and nonpressured. Mood/Affect: Patient reports their mood is "good", affect is congruent and euthymic. Suicidality/Homicidality: Patient denies having any suicidal or homicidal ideation intent or plan. Perceptions: Patient denies any auditory or visual hallucinations. Though content: There is no evidence of any delusional thought content. Thought process: thought process is linear and goal-directed. Memory and concentration: Grossly intact for the purposes of this session. Judgment and insight: chronically poor, however has improved with guarded prognosis Impression: Bipolar 1 disorder, current episode manic with psychotic features Rule out schizoaffective disorder, bipolar type Cannabis use disorder Plan: -Continue with discharge today as patient has improved and stabilized psychiatrically and is not currently an imminent threat to self and/or others. -Continue medications: Invega Sustenna 234 mg IM dose received on 08/20/2021. Booster dose of Invega Sustenna 156 mg IM is due on 08/27/2021. Next dose of Invega Sustenna 234 mg IM every 4 weeks is due 09/24/2021. Continue Invega 6 mg po daily for 5 more days to bridge until patient receives his booster dose next week. Continue Depakote 750 mg po BID for mood stabilization. Continue Lactulose 30 gm po BID for elevated ammonia. -Patient was counseled on the need for medication compliance and appropriate follow-up at mental health and also primary care for medical issues. Patient verbalized understanding and agreed. -Social work to arrange for and conduct family meeting to ensure safety upon discharge and answer any questions/concerns. Social work also to arrange for patients follow up appointments for psychiatric care along with follow up with primary care provider. -Patient counseled on abstaining from recreational drugs and marijuana and alcohol. Was informed/educated on the adverse effects on their physical and mental health. Patient verbally agreed and understood. -Patient was instructed to return to the hospital or seek immediate medical care if their psychiatric or medical symptoms do worsen or reoccur. Laboratory Tests Range/Units 08/13/21 08/13/21 08/15/21 09:30 09:30 15:55 WBC (3.8-10.6) k/uL 13.8 H RBC (4.30-5.90) m/uL 5.00 Hgb (13.0-17.5) gm/dL 15.1 Hct (39.0-53.0) % 45.1 MCV (80.0-100.0) fL 90.1 MCH (25.0-35.0) pg 30.2 MCHC (31.0-37.0) g/dL 33.5 RDW (11.5-15.5) % 12.5 Plt Count (150-450) k/uL 401 MPV 6.7 Neutrophils % % 79 Lymphocytes % % 13 Monocytes % % 5 Eosinophils % % 1 Basophils % % 1 Neutrophils # (1.3-7.7) k/uL 10.9 H Lymphocytes # (1.0-4.8) k/uL 1.8 Monocytes # (0-1.0) k/uL 0.6 Eosinophils # (0-0.7) k/uL 0.2 Basophils # (0-0.2) k/uL 0.1 Sodium (137-145) mmol/L Potassium (3.5-5.1) mmol/L Chloride (98-107) mmol/L Carbon Dioxide (22-30) mmol/L Anion Gap mmol/L BUN (9-20) mg/dL Creatinine (0.66-1.25) mg/dL Est GFR (CKD-EPI)AfAm (>60 ml/min/1.73 sqM) Est GFR (CKD-EPI)NonAf (>60 ml/min/1.73 sqM) Glucose (74-99) mg/dL Estimated Ave Glu mg/dL Hemoglobin A1c (0.0-6.0) % Calcium (8.4-10.2) mg/dL Total Bilirubin (0.2-1.3) mg/dL AST (17-59) U/L ALT (4-49) U/L Alkaline Phosphatase (38-126) U/L Ammonia (<30) umol/L Total Protein (6.3-8.2) g/dL Albumin (3.5-5.0) g/dL Triglycerides (0.00-149.00) mg/dL Cholesterol (0.00-200.00) mg/dL LDL Cholesterol, Calc (0.0-131.0) mg/dL VLDL Cholesterol, Calc (5.00-40.00) mg/dL HDL Cholesterol (40.00-60.00) mg/dL Cholesterol/HDL Ratio Ratio Amylase (30-110) U/L Lipase (23-300) U/L TSH (0.465-4.680) mIU/L Urine Color Yellow Urine Appearance (Clear) Clear Urine pH (5.0-8.0) 6.0 Ur Specific [employer] (1.001-1.035) 1.018 Urine Protein (Negative) Negative Urine Glucose (UA) (Negative) Negative Urine Ketones (Negative) Negative Urine Blood (Negative) Negative Urine Nitrite (Negative) Negative Urine Bilirubin (Negative) Negative Urine Urobilinogen (<2.0) mg/dL <2.0 Ur Leukocyte Esterase (Negative) Negative Urine Opiates Screen (Negative) Negative Urine Methadone Screen (Negative) Negative Ur Propoxyphene Screen (Negative) Negative Urine Barbiturates (Negative) Negative Valproic Acid ug/mL Ur Phencyclidine Scrn (Negative) Negative Ur Amphetamine Screen (Negative) Negative U Benzodiazepines Scrn (Negative) Negative Urine Cocaine Screen (Negative) Negative U Cannabinoids Screen (Negative) Positive A Urine Alcohol (Negative) Negative Coronavirus (PCR) (Not Detectd) Range/Units 08/15/21 08/15/21 08/15/21 15:55 15:55 15:55 WBC (3.8-10.6) k/uL RBC (4.30-5.90) m/uL Hgb (13.0-17.5) gm/dL Hct (39.0-53.0) % MCV (80.0-100.0) fL MCH (25.0-35.0) pg MCHC (31.0-37.0) g/dL RDW (11.5-15.5) % Plt Count (150-450) k/uL MPV Neutrophils % % Lymphocytes % % Monocytes % % Eosinophils % % Basophils % % Neutrophils # (1.3-7.7) k/uL Lymphocytes # (1.0-4.8) k/uL Monocytes # (0-1.0) k/uL Eosinophils # (0-0.7) k/uL Basophils # (0-0.2) k/uL Sodium (137-145) mmol/L 139 Potassium (3.5-5.1) mmol/L 4.4 Chloride (98-107) mmol/L 99 Carbon Dioxide (22-30) mmol/L 30 Anion Gap mmol/L 10 BUN (9-20) mg/dL 16 Creatinine (0.66-1.25) mg/dL 1.02 Est GFR (CKD-EPI)AfAm (>60 ml/min/1.73 sqM) >90 Est GFR (CKD-EPI)NonAf (>60 ml/min/1.73 sqM) >90 Glucose (74-99) mg/dL [address] Glu mg/dL 117 Hemoglobin A1c (0.0-6.0) % 5.7 Calcium (8.4-10.2) mg/dL 9.3 Total Bilirubin (0.2-1.3) mg/dL AST (17-59) U/L ALT (4-49) U/L Alkaline Phosphatase (38-126) U/L Ammonia (<30) umol/L <9 Total Protein (6.3-8.2) g/dL Albumin (3.5-5.0) g/dL Triglycerides (0.00-149.00) mg/dL 71.20 Cholesterol (0.00-200.00) mg/dL 128.00 LDL Cholesterol, Calc (0.0-131.0) mg/dL 69.4 VLDL Cholesterol, Calc (5.00-40.00) mg/dL 14.24 HDL Cholesterol (40.00-60.00) mg/dL 44.40 Cholesterol/HDL Ratio Ratio 2.88 Amylase (30-110) U/L Lipase (23-300) U/L TSH (0.465-4.680) mIU/L 1.040 Urine Color Urine Appearance (Clear) Urine pH (5.0-8.0) Ur Specific [employer] (1.001-1.035) Urine Protein (Negative) Urine Glucose (UA) (Negative) Urine Ketones (Negative) Urine Blood (Negative) Urine Nitrite (Negative) Urine Bilirubin (Negative) Urine Urobilinogen (<2.0) mg/dL Ur Leukocyte Esterase (Negative) Urine Opiates Screen (Negative) Urine Methadone Screen (Negative) Ur Propoxyphene Screen (Negative) Urine Barbiturates (Negative) Valproic Acid ug/mL Ur Phencyclidine Scrn (Negative) Ur Amphetamine Screen (Negative) U Benzodiazepines Scrn (Negative) Urine Cocaine Screen (Negative) U Cannabinoids Screen (Negative) Urine Alcohol (Negative) Coronavirus (PCR) (Not Detectd) Range/Units 08/15/21 08/17/21 08/17/21 18:53 15:16 15:16 WBC (3.8-10.6) k/uL 9.7 RBC (4.30-5.90) m/uL 4.43 Hgb (13.0-17.5) gm/dL 13.6 Hct (39.0-53.0) % 40.6 MCV (80.0-100.0) fL 91.8 MCH (25.0-35.0) pg 30.7 MCHC (31.0-37.0) g/dL 33.5 RDW (11.5-15.5) % 12.9 Plt Count (150-450) k/uL 348 MPV 6.8 Neutrophils % % 78 Lymphocytes % % 14 Monocytes % % 5 Eosinophils % % 1 Basophils % % 0 Neutrophils # (1.3-7.7) k/uL 7.6 Lymphocytes # (1.0-4.8) k/uL 1.4 Monocytes # (0-1.0) k/uL 0.5 Eosinophils # (0-0.7) k/uL 0.1 Basophils # (0-0.2) k/uL 0.0 Sodium (137-145) mmol/L 138 Potassium (3.5-5.1) mmol/L 4.3 Chloride (98-107) mmol/L 101 Carbon Dioxide (22-30) mmol/L 31 H Anion Gap mmol/L 6 BUN (9-20) mg/dL 15 Creatinine (0.66-1.25) mg/dL 0.90 Est GFR (CKD-EPI)AfAm (>60 ml/min/1.73 sqM) >90 Est GFR (CKD-EPI)NonAf (>60 ml/min/1.73 sqM) >90 Glucose (74-99) mg/dL [address] Glu mg/dL Hemoglobin A1c (0.0-6.0) % Calcium (8.4-10.2) mg/dL 9.0 Total Bilirubin (0.2-1.3) mg/dL 0.6 AST (17-59) U/L 43 ALT (4-49) U/L 23 Alkaline Phosphatase (38-126) U/L 71 Ammonia (<30) umol/L Total Protein (6.3-8.2) g/dL 6.9 Albumin (3.5-5.0) g/dL 4.3 Triglycerides (0.00-149.00) mg/dL Cholesterol (0.00-200.00) mg/dL LDL Cholesterol, Calc (0.0-131.0) mg/dL VLDL Cholesterol, Calc (5.00-40.00) mg/dL HDL Cholesterol (40.00-60.00) mg/dL Cholesterol/HDL Ratio Ratio Amylase (30-110) U/L 56 Lipase (23-300) U/L 41 TSH (0.465-4.680) mIU/L Urine Color Urine Appearance (Clear) Urine pH (5.0-8.0) Ur Specific [employer] (1.001-1.035) Urine Protein (Negative) Urine Glucose (UA) (Negative) Urine Ketones (Negative) Urine Blood (Negative) Urine Nitrite (Negative) Urine Bilirubin (Negative) Urine Urobilinogen (<2.0) mg/dL Ur Leukocyte Esterase (Negative) Urine Opiates Screen (Negative) Urine Methadone Screen (Negative) Ur Propoxyphene Screen (Negative) Urine Barbiturates (Negative) Valproic Acid ug/mL Ur Phencyclidine Scrn (Negative) Ur Amphetamine Screen (Negative) U Benzodiazepines Scrn (Negative) Urine Cocaine Screen (Negative) U Cannabinoids Screen (Negative) Urine Alcohol (Negative) Coronavirus (PCR) (Not Detectd) Not Detected Range/Units 08/17/21 08/18/21 08/21/21 15:16 07:18 15:44 WBC (3.8-10.6) k/uL RBC (4.30-5.90) m/uL Hgb (13.0-17.5) gm/dL Hct (39.0-53.0) % MCV (80.0-100.0) fL MCH (25.0-35.0) pg MCHC (31.0-37.0) g/dL RDW (11.5-15.5) % Plt Count (150-450) k/uL MPV Neutrophils % % Lymphocytes % % Monocytes % % Eosinophils % % Basophils % % Neutrophils # (1.3-7.7) k/uL Lymphocytes # (1.0-4.8) k/uL Monocytes # (0-1.0) k/uL Eosinophils # (0-0.7) k/uL Basophils # (0-0.2) k/uL Sodium (137-145) mmol/L 141 Potassium (3.5-5.1) mmol/L 4.3 Chloride (98-107) mmol/L 101 Carbon Dioxide (22-30) mmol/L 34 H Anion Gap mmol/L 6 BUN (9-20) mg/dL 15 Creatinine (0.66-1.25) mg/dL 1.14 Est GFR (CKD-EPI)AfAm (>60 ml/min/1.73 sqM) >90 Est GFR (CKD-EPI)NonAf (>60 ml/min/1.73 sqM) >90 Glucose (74-99) mg/dL [address] Glu mg/dL Hemoglobin A1c (0.0-6.0) % Calcium (8.4-10.2) mg/dL 9.1 Total Bilirubin (0.2-1.3) mg/dL 0.5 AST (17-59) U/L 23 ALT (4-49) U/L 17 Alkaline Phosphatase (38-126) U/L 68 Ammonia (<30) umol/L <9 Total Protein (6.3-8.2) g/dL 7.1 Albumin (3.5-5.0) g/dL 4.3 Triglycerides (0.00-149.00) mg/dL Cholesterol (0.00-200.00) mg/dL LDL Cholesterol, Calc (0.0-131.0) mg/dL VLDL Cholesterol, Calc (5.00-40.00) mg/dL HDL Cholesterol (40.00-60.00) mg/dL Cholesterol/HDL Ratio Ratio Amylase (30-110) U/L Lipase (23-300) U/L TSH (0.465-4.680) mIU/L Urine Color Urine Appearance (Clear) Urine pH (5.0-8.0) Ur Specific [employer] (1.001-1.035) Urine Protein (Negative) Urine Glucose (UA) (Negative) Urine Ketones (Negative) Urine Blood (Negative) Urine Nitrite (Negative) Urine Bilirubin (Negative) Urine Urobilinogen (<2.0) mg/dL Ur Leukocyte Esterase (Negative) Urine Opiates Screen (Negative) Urine Methadone Screen (Negative) Ur Propoxyphene Screen (Negative) Urine Barbiturates (Negative) Valproic Acid ug/mL 76.1 Ur Phencyclidine Scrn (Negative) Ur Amphetamine Screen (Negative) U Benzodiazepines Scrn (Negative) Urine Cocaine Screen (Negative) U Cannabinoids Screen (Negative) Urine Alcohol (Negative) Coronavirus (PCR) (Not Detectd) Range/Units 08/21/21 08/21/21 08/22/21 15:44 16:05 10:26 WBC (3.8-10.6) k/uL RBC (4.30-5.90) m/uL Hgb (13.0-17.5) gm/dL Hct (39.0-53.0) % MCV (80.0-100.0) fL MCH (25.0-35.0) pg MCHC (31.0-37.0) g/dL RDW (11.5-15.5) % Plt Count (150-450) k/uL MPV Neutrophils % % Lymphocytes % % Monocytes % % Eosinophils % % Basophils % % Neutrophils # (1.3-7.7) k/uL Lymphocytes # (1.0-4.8) k/uL Monocytes # (0-1.0) k/uL Eosinophils # (0-0.7) k/uL Basophils # (0-0.2) k/uL Sodium (137-145) mmol/L Potassium (3.5-5.1) mmol/L Chloride (98-107) mmol/L Carbon Dioxide (22-30) mmol/L Anion Gap mmol/L BUN (9-20) mg/dL Creatinine (0.66-1.25) mg/dL Est GFR (CKD-EPI)AfAm (>60 ml/min/1.73 sqM) Est GFR (CKD-EPI)NonAf (>60 ml/min/1.73 sqM) Glucose (74-99) mg/dL Estimated Ave Glu mg/dL Hemoglobin A1c (0.0-6.0) % Calcium (8.4-10.2) mg/dL Total Bilirubin (0.2-1.3) mg/dL AST (17-59) U/L ALT (4-49) U/L Alkaline Phosphatase (38-126) U/L Ammonia (<30) umol/L 40 H <9 Total Protein (6.3-8.2) g/dL Albumin (3.5-5.0) g/dL Triglycerides (0.00-149.00) mg/dL Cholesterol (0.00-200.00) mg/dL LDL Cholesterol, Calc (0.0-131.0) mg/dL VLDL Cholesterol, Calc (5.00-40.00) mg/dL HDL Cholesterol (40.00-60.00) mg/dL Cholesterol/HDL Ratio Ratio Amylase (30-110) U/L Lipase (23-300) U/L TSH (0.465-4.680) mIU/L Urine Color Urine Appearance (Clear) Urine pH (5.0-8.0) Ur Specific [employer] (1.001-1.035) Urine Protein (Negative) Urine Glucose (UA) (Negative) Urine Ketones (Negative) Urine Blood (Negative) Urine Nitrite (Negative) Urine Bilirubin (Negative) Urine Urobilinogen (<2.0) mg/dL Ur Leukocyte Esterase (Negative) Urine Opiates Screen (Negative) Urine Methadone Screen (Negative) Ur Propoxyphene Screen (Negative) Urine Barbiturates (Negative) Valproic Acid ug/mL Ur Phencyclidine Scrn (Negative) Ur Amphetamine Screen (Negative) U Benzodiazepines Scrn (Negative) Urine Cocaine Screen (Negative) U Cannabinoids Screen (Negative) Urine Alcohol (Negative) Coronavirus (PCR) (Not Detectd) Not Detected Patient Condition at Discharge: Stable Plan - Discharge Summary Discharge Rx Participant: No New Discharge Prescriptions: New Paliperidone IM [Invega Sustenna] 156 mg IM ONCE #1 each Lactulose [Cephulac] 30 gm PO BID #14 ml Divalproex ER [Depakote ER] 750 mg PO BID 30 Days tab Paliperidone [Invega] 6 mg PO DAILY #5 tab Paliperidone IM [Invega Sustenna] 234 mg IM QMONTHLY #1 each Discharge Medication List Divalproex ER [Depakote ER] 750 mg PO BID 30 Days tab 08/22/21 [Rx] Lactulose [Cephulac] 30 gm PO BID #14 ml 08/22/21 [Rx] Paliperidone IM [Invega Sustenna] 156 mg IM ONCE #1 each 08/22/21 [Rx] Paliperidone IM [Invega Sustenna] 234 mg IM QMONTHLY #1 each 08/22/21 [Rx] Paliperidone [Invega] 6 mg PO DAILY #5 tab 08/22/21 [Rx] Follow up Appointment(s)/Referral(s): [facility]Other[facility] - 1 Week [facility] [Outside] - 08/28/21 4:00 pm (with Lila Vo) Patient Instructions/Handouts: How to Stop Smoking (DC), Bipolar Disorder (DC) Activity/Diet/Wound Care/Special Instructions: Avoid the use of street drugs and alcohol. Take all prescriptions as prescribed. When you are in need of refills on your medications, please contact your medical provider and/or outpatient psychiatrist to have this done. Please go to scheduled outpatient appointment for aftercare treatment. If symptoms return or become worse, call the crisis line at and/or go to the nearest emergency room for evaluation.
== END 2021-08-22 12:20 | disposition home or self-care (01) | DRG 885 ==
LOC: 3MHU 21:32
PROVIDERS: ADMIT Psychiatry & Neurology Psychiatry; ATTEND Psychiatry & Neurology Psychiatry
DX: F23 Brief psychotic disorder (principal); E72.20 Disorder of urea cycle metabolism, unspecified; F12.90 Cannabis use, unspecified, uncomplicated; F31.2 Bipolar disorder, current episode manic severe with psychotic features; F41.9 Anxiety disorder, unspecified; Z56.0 Unemployment, unspecified; Z79.899 Other long term (current) drug therapy; Z20.822 Contact with and (suspected) exposure to COVID-19
CPT/HCPCS: 80048; 80053; 80061; 80164; 80306; 81003; 82140; 82150; 83036; 83690; 84443; 85025; 87635